=== PATIENT | female | born 1955 | race Caucasian/White ===

== ENCOUNTER 2017-12-12 06:01 | Observation (INO) | payer MEDICARE, OTHER ==
[~2017-12-12] VITALS: Ht 154.9 cm; Wt 73.0 kg
[2017-12-12 06:04] VITALS: BP 185/79; PULSE 67; RESP 18; TEMP 97.4; O2SAT 100
[2017-12-12] MEDS ORDERED: SODIUM CHLOR 0.9% 1000 ML INJ 1,000 ML IV SCH (06:22)
[2017-12-12] MEDS ORDERED: MORPHINE SULFATE 4 MG/ML INJ IV PUSH ONE (06:30)
[2017-12-12] MEDS ORDERED: ONDANSETRON HCL 4 MG/2 ML VIAL IVP ONE (06:30)
[2017-12-12] MEDS ORDERED: SODIUM CHLORIDE 0.9% FLUSH 10 ML FLUSH IV FLUSH PRN ×2 (06:30→10:30)
--- NOTE | 2017-12-12 06:34 | PD ---
HPI . Abdominal pain Chief Complaint: Abdominal Pain Time Seen by Provider: 06:16 Travel History International Travel<30 days: No Contact w/Intl Traveler<30days: No Traveled to known affect area: No History of Present Illness HPI This patient presents with a chief complaint of abdominal pain. Onset was about 2 AM. She states that she ate a steak for supper last night and felt nauseous shortly after eating. The pain started at 0200 and has persisted since that time.. The pain is moderate. She states that she has a known history of gallstones. She has intermittent episodes of symptoms. She states that this 1 is the worst. She states that her primary care provider referred her to Dr. Medina for evaluation of her abdominal pain. She had an outpatient CT scan done which showed gallstones but no evidence of cholecystitis. That was in February 2017. ON LICENSE OF [facility] Past Medical History Medical History: Denies Significant Hx Diminished Hearing: No Immunizations Current: Yes Past Surgical History Section: Yes Social History Alcohol Use: No Tobacco Use: No Substance Use: No Allergies-Medications (Allergen,Severity, Reaction): Coded Allergies: No Known Allergies (Unverified , 12/12/17) Review of Systems Except as stated in HPI: all other systems reviewed are Neg General / Constitutional: No: Fever, Chills Gastrointestinal: Positive: Nausea, Vomiting, Abdominal Pain Genitourinary: No: Urgency, Frequency, Dysuria Physical Exam Narrative GENERAL: Awake and alert. She looks mildly uncomfortable. SKIN: warm/dry. HEAD: Normocephalic. Atraumatic. EYES: Pupils equal and round. No scleral icterus. No injection or drainage. ENT: No nasal bleeding or discharge. Mucous membranes pink and moist. NECK: Trachea midline. Full range of motion without pain.. CARDIOVASCULAR: Regular rate and rhythm. Heart sounds are normal. RESPIRATORY: No accessory muscle use. Clear to auscultation. Breath sounds equal bilaterally. GASTROINTESTINAL: Abdomen soft. Tenderness on the right. Positive Mosher sign. Bowel sounds present. Nondistended. MUSCULOSKELETAL: No obvious deformities. NEUROLOGICAL: Awake and alert. No obvious cranial nerve deficits. Motor grossly within normal limits. Normal speech. PSYCHIATRIC: Appropriate mood and affect; insight and judgment normal. Data Data Last Documented VS Vital Signs Date Time Temp Pulse Resp B/P (MAP) Pulse Ox O2 Delivery O2 Flow Rate FiO2 12/12/17 06:04 97.4 67 18 185/79 (114) 100 Orders Orders Complete Blood Count With Diff (12/12/17 06:22) Comprehensive Metabolic Panel (12/12/17 06:22) Lipase (12/12/17 06:22) Urinalysis - C+S If Indicated (12/12/17 06:22) Iv Access Insert/Monitor (12/12/17 06:22) Morphine Inj (Morphine Inj) (12/12/17 06:30) Ondansetron Inj (Zofran Inj) (12/12/17 06:30) Sodium Chlor 0.9% 1000 Ml Inj (Ns 1000 M (12/12/17 06:22) Sodium Chloride 0.9% Flush (Ns Flush) (12/12/17 06:30) Labs Laboratory Tests Test 12/12/17 06:58 12/12/17 07:00 [facility] Medical Decision Making Medical Screen Exam Complete: Yes Emergency Medical Condition: Yes Medical Record Reviewed: Yes (She does not have any old records in our system. However, she does have a copy of her CT report from February.) Differential Diagnosis Differential diagnosis of abdominal pain includes but is not limited to gastritis, pancreatitis, hepatitis, gastroenteritis, constipation, urinary retention, peptic ulcer disease, diverticulitis or appendicitis Narrative Course This patient presents stating that she has a known history of gallstones. She had a steak for supper last night and awakened at 2:00 this morning with right upper quadrant abdominal pain. She has had some associated nausea and vomiting. An IV has been started and she has been given IV morphine and Zofran. Labs and UA have been ordered. Her care will be turned over to the oncoming provider at 7 AM pending lab results and response to treatment. If she needs a surgeon, she has seen Dr. Forrest Medina as an outpatient. Diagnosis Primary Impression: Abdominal pain Qualified Codes: R10.11 - Right upper quadrant pain Condition: Stable Emi Ogden MD Dec 12, 2017 06:34
[2017-12-12 07:20] LABS: AUTOMATED NEUTROPHIL # 4.2 TH/MM3 (1.8-7.7); BASOPHIL % 0.2 % (0.0-2.0); EOSINOPHIL % 0.2 % (0.0-4.0); HEMATOCRIT 36.2 % (35.0-46.0); HEMOGLOBIN 12.5 GM/DL (11.6-15.3); LYMPHOCYTE # 0.9 TH/MM3 (1.0-4.8); MEAN CELL VOLUME 86.6 FL (80.0-100.0); MEAN CORPUSCULAR HEMOGLOBIN 29.8 PG (27.0-34.0); MEAN CORPUSCULAR HGB CONC 34.4 % (32.0-36.0); MEAN PLATELET VOLUME 8.9 FL (7.0-11.0); MONO % 4.5 % (0.0-8.0); MONOCYTE # 0.2 TH/MM3 (0-0.9); NEUT % 78.1 % (16.0-70.0); PLATELET COUNT 152 TH/MM3 (150-450); RED BLOOD COUNT 4.18 MIL/MM3 (4.00-5.30); RED CELL DISTRIBUTION WIDTH 14.2 % (11.6-17.2); WHITE BLOOD COUNT 5.3 TH/MM3 (4.0-11.0)
[2017-12-12 07:44] LABS: AMORPHOUS SEDIMENT, URINE MOD; BILIRUBIN, URINE NEG (NEG); BLOOD, URINE NEG (NEG); GLUCOSE,URINE NEG (NEG); KETONE, URINE 40 mg/dL (NEG); MUCUS URINE MOD /lpf (OCC); NITRITE,URINE NEG (NEG); PH, URINE 7.5 (5.0-8.5); SQUAMOUS EPITHELIAL CELL URINE 2 /hpf (0-5); URINE COLOR YELLOW (YELLW/STRAW); URINE LEUKOCYTE ESTERASE MOD (NEG)
[2017-12-12 07:57] LABS: ALBUMIN 3.8 GM/DL (3.4-5.0); ALT (GPT) 19 U/L (10-53); AST (GOT) 13 U/L (15-37); BICARBONATE 26.5 MEQ/L (21.0-32.0); BLOOD UREA NITROGEN 15 MG/DL (7-18); CALCIUM 8.6 MG/DL (8.5-10.1); CHLORIDE 107 MEQ/L (98-107); CREATININE 0.41 MG/DL (0.50-1.00); GLOMERULAR FILTRATION RATE 157 ML/MIN (>89); GLUCOSE,RANDOM 150 MG/DL (74-106); SODIUM (NA) 141 MEQ/L (136-145)
[2017-12-12 07:59] LABS: ALKALINE PHOSPHATASE 73 U/L (45-117); TOTAL BILIRUBIN ADULT 0.4 MG/DL (0.2-1.0); TOTAL PROTEIN 7.7 GM/DL (6.4-8.2)
[2017-12-12] MEDS ORDERED: MORPHINE SULFATE 2 MG/ML SYRINGE IV PUSH ONE (08:45)
[2017-12-12] MEDS ORDERED: IOHEXOL 350 MG/ML 10 ML VIAL (for RAD DIAG) IVCONTRAST ONE (09:10)
--- NOTE | 2017-12-12 09:34 | RADRPT ---
EXAM DATE/TIME: 12/12/2017 09:05 [facility] COMPARISON: No previous studies available for comparison. INDICATIONS : Abdominal pain. IV CONTRAST: 95 cc Omnipaque 350 (iohexol) IV ORAL CONTRAST: No oral contrast ingested. RADIATION DOSE: 12.41 CTDIvol (mGy) MEDICAL HISTORY : Gall stones. SURGICAL HISTORY : section. ENCOUNTER: Initial ACUITY: 1 day PAIN SCALE: 6/10 LOCATION: Abdomen. TECHNIQUE: Volumetric scanning of the abdomen and pelvis was performed. Using automated exposure control and ad justment of the mA and/or kV according to patient size, radiation dose was kept as low as reasonably achievable to obtain optimal diagnostic quality images. DICOM format image data is available electro nically for review and comparison. FINDINGS: LOWER LUNGS: The visualized lower lungs are clear. LIVER: Homogeneous density without lesion. There is mild dilation of the biliary tree. Multiple calcified g allstones. Gallbladder dilated. SPLEEN: Normal size without lesion. PANCREAS: Within normal limits. KIDNEYS: Normal in size and shape. There is no mass, stone or hydronephrosis. ADRENAL GLANDS: Within normal limits. VASCULAR: There is no aortic aneurysm. BOWEL/MESENTERY: The stomach, small bowel, and colon demonstrate no acute abnormality. There is no free intraperitone al air or fluid. Scattered diverticula. ABDOMINAL WALL: Within normal limits. RETROPERITONEUM: There is no lymphadenopathy. BLADDER: No wall thickening or mass. REPRODUCTIVE: Within normal limits. INGUINAL: There is no lymphadenopathy or hernia. MUSCULOSKELETAL: Within normal limits for patient age. CONCLUSION: 1. Gallbladder is dilated with multiple gallstones and mild intrahepatic biliary ductal dilatation. 2. Scattered diverticulosis without diverticulitis. Aries Dorantes MD on December 12, 2017 at 9:30 Board Certified Radiologist. This report was verified electronically.
[2017-12-12] MEDS ORDERED: ONDANSETRON HCL 4 MG/2 ML VIAL IV PUSH PRN ×2 (10:30→20:30)
[2017-12-12] MEDS ORDERED: MORPHINE SULFATE 4 MG/ML INJ IV PUSH PRN (10:30)
[2017-12-12] MEDS ORDERED: MORPHINE SULFATE 2 MG/ML SYRINGE IV PUSH PRN (10:30)
[2017-12-12] MEDS ORDERED: ceFAZolin 2 GM PREMIX 50 ML IV ONE (11:00)
[2017-12-12] MEDS: SODIUM CHLOR 0.9% 1000 ML INJ 1,000 ML IV SCH ×2 (11:25→19:46)
[2017-12-12 12:00] VITALS: BP 178/77; PULSE 111; RESP 17; TEMP 97.4; O2SAT 96
[2017-12-12] MEDS ORDERED: KETOROLAC TROMETHAMINE 30 MG/ML (IVP) VIAL IV PUSH ONE (12:00)
[2017-12-12] MEDS ORDERED: ROCURONIUM INJ 50 MG/5 ML SYRINGE IV PUSH ONE (12:00)
[2017-12-12] MEDS ORDERED: hydrALAZINE HCL 20 MG/ML VIAL IV ONE (12:00)
[2017-12-12] MEDS ORDERED: NEOSTIGMINE 5 MG/5 ML SYRINGE IV PUSH ONE (12:00)
[2017-12-12] MEDS ORDERED: DEXAMETHASONE SOD PHOS 4 MG/ML VIAL IV ONE (12:00)
[2017-12-12] MEDS ORDERED: LIDOCAINE HCL 1% PF 5 ML SYRINGE OTHER ONE (12:00)
[2017-12-12] MEDS ORDERED: ONDANSETRON HCL 4 MG/2 ML VIAL IV ONE (12:00)
[2017-12-12] MEDS ORDERED: PROPOFOL 200 MG/20 ML AMP IV ONE (12:00)
[2017-12-12] MEDS ORDERED: LACTATED RINGER'S 1000 ML INJ 1,000 ML IV ONE (12:00)
[2017-12-12] MEDS ORDERED: SODIUM CHLORIDE 0.9% 10 ML VIAL IV FLUSH ONE (12:00)
[2017-12-12] MEDS ORDERED: GLYCOPYRROLATE 1 MG/5 ML SYRINGE IV PUSH ONE (12:00)
[2017-12-12] MEDS ORDERED: SUCCINYLCHOLINE CHLORIDE 200 MG/10 ML VIAL IV ONE (12:00)
--- NOTE | 2017-12-12 14:24 | HHI.HP ---
cc: David Leiva MD HPI Service General Surgery Primary Care Physician No Primary Care Physician Admission Diagnosis Biliary colic Chief Complaint: Abdominal pain with associated nausea. History of Present Illness This is a 62 year old female with no significant past medical history who presents to the ED with complains of abdominal pain with associated nausea that began about 0200 this morning. She had Indonesian food for dinner last night. She suddenly awoke with severe abdominal pain. She had seen Dr. Leiva about 9 months ago for similar pain and she was found to have gallstones. She decided on conservative management and dietary changes at that time. A CT abdomen/ pelvis was obtained in the ED and shows the gallbladder is dilated with multiple gallstones. Her WBC is normal. Her liver enzymes are normal. Her lipase is normal. A General Surgery admission has been requested. Review of Systems Constitutional: DENIES: Fatigue, Chills, Change in appetite Endocrine: DENIES: Polydipsia, Polyuria, Polyphagia Eyes: DENIES: Diplopia Ears, nose, mouth, throat: DENIES: Hearing loss Respiratory: DENIES: Apneas, Cough Cardiovascular: DENIES: Chest pain Gastrointestinal: COMPLAINS OF: Abdominal pain, Nausea, DENIES: Vomiting Genitourinary: DENIES: Urinary frequency Musculoskeletal: DENIES: Joint pain Integumentary: DENIES: Abnormal pigmentation Hematologic/lymphatic: DENIES: Bruising Immunologic/allergic: DENIES: Eczema Neurologic: DENIES: Headache, Localized weakness Psychiatric: DENIES: Mood changes, Depression, Hallucinations Past Family Social History Past Medical History None Past Surgical History Lipoma removal Reported Medications None Allergies: Coded Allergies: No Known Allergies (Unverified , 12/12/17) Active Ordered Medications Current Medications Medications (Trade) Dose Ordered Sig/Tonya Route Start Time Stop Time Status Last Admin Sodium Chloride 1,000 ml @ 125 mls/hr Q8H IV 12/12/17 11:00 12/12/17 11:25 (NS Flush) 2 ml BID IV FLUSH 12/12/17 21:00 (NS Flush) 2 ml UNSCH PRN IV FLUSH 4/17/18 10:30 (Morphine Inj) 2 mg Q3H PRN IV PUSH 12/12/17 10:30 (Morphine Inj) 4 mg Q3H PRN IV PUSH 12/12/17 10:30 (Zofran Inj) 4 mg Q6H PRN IV PUSH 12/12/17 10:30 Family History Noncontributory Social History Denies tobacco use Occasional ETOH use; not daily Denies illicit drug use She lives in [place], [place] with her . Physical Exam Vital Signs Vital Signs Date Time Temp Pulse Resp B/P (MAP) Pulse Ox O2 Delivery O2 Flow Rate FiO2 12/12/17 12:00 97.4 111 17 178/77 (110) 96 12/12/17 06:04 97.4 67 18 185/79 (114) 100 Physical Exam GENERAL: Pleasant 62 year old female resting in bed in mild acute distress secondary to pain. SKIN: Warm and dry. HEAD: Atraumatic. Normocephalic. EYES: Pupils equal and round. No scleral icterus. No injection or drainage. ENT: No nasal bleeding or discharge. Mucous membranes pink and moist. NECK: Trachea midline. CARDIOVASCULAR: Regular rate and rhythm. RESPIRATORY: No accessory muscle use. Clear to auscultation. Breath sounds equal bilaterally. GASTROINTESTINAL: Abdomen soft, non distended. Epigastric and RUQ tenderness with palpation. Well healed low transverse scar. MUSCULOSKELETAL: Extremities without clubbing, cyanosis, or edema. No obvious deformities. NEUROLOGICAL: Awake and alert. No obvious cranial nerve deficits. Motor grossly within normal limits. Five out of 5 muscle strength in the arms and legs. Normal speech. PSYCHIATRIC: Appropriate mood and affect; insight and judgment normal. Laboratory Laboratory Tests Test 12/12/17 06:58 12/12/17 07:00 White Blood Count 5.3 Red Blood Count 4.18 Hemoglobin 12.5 Hematocrit 36.2 Mean Corpuscular Volume 86.6 Mean Corpuscular Hemoglobin 29.8 Mean Corpuscular Hemoglobin Concent 34.4 Red Cell Distribution Width 14.2 Platelet Count 152 Mean Platelet Volume 8.9 Neutrophils (%) (Auto) 78.1 Lymphocytes (%) (Auto) 17.0 Monocytes (%) (Auto) 4.5 Eosinophils (%) (Auto) 0.2 Basophils (%) (Auto) 0.2 Neutrophils # (Auto) 4.2 Lymphocytes # (Auto) 0.9 Monocytes # (Auto) 0.2 Eosinophils # (Auto) 0.0 Basophils # (Auto) 0.0 CBC Comment AUTO DIFF Differential Comment AUTO DIFF CONFIRMED Blood Urea Nitrogen 15 Creatinine 0.41 Random Glucose 150 Total Protein 7.7 Albumin 3.8 Calcium Level 8.6 Alkaline Phosphatase 73 Aspartate Amino Transf (AST/SGOT) 13 Alanine Aminotransferase (ALT/SGPT) 19 Total Bilirubin 0.4 Sodium Level 141 Potassium Level 3.6 Chloride Level 107 Carbon Dioxide Level 26.5 Anion Gap 8 Estimat Glomerular Filtration Rate 157 Lipase 98 Urine Color YELLOW Urine Turbidity HAZY Urine pH 7.5 Urine Specific Grover 1.021 Urine Protein TRACE Urine Glucose (UA) NEG Urine Ketones 40 Urine Occult Blood NEG Urine Nitrite NEG Urine Bilirubin NEG Urine Urobilinogen LESS THAN 2.0 Urine Leukocyte Esterase MOD Urine RBC 2 Urine WBC 7 Urine Squamous Epithelial Cells 2 Urine Amorphous Sediment MOD Urine Mucus MOD Microscopic Urinalysis Comment CULT NOT INDICATED Result Diagram: 12/12/17 0658 12/12/17 0658 Imaging Last 48 hours Impressions Abdomen/Pelvis CT 12/12/17 0831 Signed Impressions: Service Date/Time: Tuesday, December 12, 2017 09:05 - CONCLUSION: 1. Gallbladder is dilated with multiple gallstones and mild intrahepatic biliary ductal dilatation. 2. Scattered diverticulosis without diverticulitis. Aries Dorantes MD Caprini VTE Risk Assessment Caprini VTE Risk Assessment: No/Low Risk (score <= 1) VTE Pharm Contraindication: going to surgery Caprini Risk Assessment Model Point Value = 1 Point Value = 2 Point Value = 3 Point Value = 5 Age 41-60 Minor surgery BMI > 25 kg/m2 Swollen legs Varicose veins or History of unexplained or recurrent spontaneous Oral contraceptives or hormone replacement Sepsis (< 1 month) Serious lung disease, including pneumonia (< 1 month) Abnormal pulmonary function Acute myocardial infarction Congestive heart failure (< 1 month) History of inflammatory bowel disease Medical patient at bed rest Age 61-74 Arthroscopic surgery Major open surgery (> 45 min) Laparoscopic surgery (> 45 min) Malignancy Confined to bed (> 72 hours) Immobilizing plaster cast Central venous access Age >= 75 History of VTE Family history of VTE Factor V Leiden Prothrombin [id number] Lupus anticoagulant Anticardiolipin antibodies Elevated serum homocysteine Heparin-induced thrombocytopenia Other congenital or acquired thrombophilia Stroke (< 1 month) Elective arthroplasty Hip, pelvis, or leg fracture Acute spinal cord injury (< 1 month) Prophylaxis Regimen Total Risk Factor Score Risk Level Prophylaxis Regimen 0-1 Low Early ambulation 2 Moderate Order ONE of the following: *Sequential Compression Device (SCD) *Heparin 5000 units SQ BID 3-4 Higher Order ONE of the following medications: *Heparin 5000 units SQ TID *Enoxaparin/Lovenox 40 mg SQ daily (WT < 150 kg, CrCl > 30 mL/min) *Enoxaparin/Lovenox 30 mg SQ daily (WT < 150 kg, CrCl > 10-29 mL/min) *Enoxaparin/Lovenox 30 mg SQ BID (WT < 150 kg, CrCl > 30 mL/min) AND/OR *Sequential Compression Device (SCD) 5 or more Highest Order ONE of the following medications: *Heparin 5000 units SQ TID (Preferred with Epidurals) *Enoxaparin/Lovenox 40 mg SQ daily (WT < 150 kg, CrCl > 30 mL/min) *Enoxaparin/Lovenox 30 mg SQ daily (WT < 150 kg, CrCl > 10-29 mL/min) *Enoxaparin/Lovenox 30 mg SQ BID (WT < 150 kg, CrCl > 30 mL/min) AND *Sequential Compression Device (SCD) Assessment and Plan Assessment and Plan 62 year old female with RUQ pain; gallstones; thickened gallbladder wall -Plan for laparoscopic cholecystectomy this afternoon with Dr. Leiva -NPO -Obtain consents -Explained procedure in detail and all questions answered -Hold anticoagulation PT SEEN AND EVALUATED WITH PBX MECHANIC WHO DOCUMENTED OUR VISIT. ACUTE CHOLECYSTITIS. RECOMMEND LAP RENE. PT AGREES. OR NOTIFIED. DAVID LEIVA MD FACS Discussed Condition With Dr. Adam Vaughn. and JacquelineArlene Oliver PBX MECHANIC/Court Recorder PBX MECHANIC Dec 12, 2017 14:24 David Leiva MD Dec 15, 2017 15:43
[2017-12-12 16:12] VITALS: BP 147/74; PULSE 73; RESP 17; TEMP 98.6; O2SAT 96
[2017-12-12] MEDS ORDERED: ACETAMINOPHEN 1000 MG/100 ML 100 ML IV ONE (16:40)
[2017-12-12] MEDS ORDERED: CHLORHEXIDINE GLUCONATE 2 % 1 PACK (2 CLOTHS) TOPICAL PRN (17:00)
[2017-12-12] MEDS ORDERED: LACTATED RINGER'S 1000 ML IV PRN (17:00)
[2017-12-12] MEDS ORDERED: METOPROLOL TARTRATE 25 MG TAB PO PRN (17:00)
[2017-12-12] MEDS ORDERED: SODIUM CHLORID 0.9% 500 ML IV PRN (17:00)
[2017-12-12] MEDS ORDERED: POVIDONE IODINE 5% (ANTISEPSIS KIT) 4 APPLICATIONS EACH NARE PRN (17:00)
[2017-12-12] MEDS ORDERED: BUPIVACAINE/EPINEPHRINE 0.75% PF 30 ML VIAL ONE (17:54)
[2017-12-12] MEDS ORDERED: DO NOT ADM ANY ANTICOAGULANT DRUGS PRN (18:55)
[2017-12-12] MEDS ORDERED: MIDAZOLAM HCL 2 MG/2 ML VIAL ONE (19:04)
[2017-12-12] MEDS ORDERED: DEXTROSE 5%-LACTATED RING INJ 1,000 ML ONE (19:30)
--- NOTE | 2017-12-12 19:33 | MP ---
cc: Forrest Medina MD DATE OF OPERATION: 12/12/2017 PREOPERATIVE DIAGNOSIS: Acute cholecystitis. POSTOPERATIVE DIAGNOSIS: Gangrenous cholecystitis. PROCEDURE PERFORMED: Laparoscopic cholecystectomy. SURGEON: Forrest Medina MD HYDRAULIC BLOCKER: Ana Mcguire MS-3 ANESTHESIA: General endotracheal. COMPLICATIONS: None. INDICATIONS FOR PROCEDURE: Ms. Phillips is a pleasant 62-year-old female who I had seen approximately a year ago for chronic cholecystitis. She was offered elective cholecystectomy at that time. The patient declined and wanted to manage her gallstones with diet modification. Apparently, over the weekend, the patient was visiting some relatives up [place] and ate a lot of greasy, fatty food including a steak and multiple desserts. She developed severe right upper quadrant abdominal pain. She came to the emergency department early this morning where she was seen and evaluated by the ER doctor. There, she was found to have significant pain. She was also found to have a low-grade fever. Her white count was normal. LFTs were normal. She had a CT scan of the abdomen and pelvis, which demonstrated a distended, edematous gallbladder and multiple small gallstones. It was felt acute cholecystitis was the most likely diagnosis. Surgical consultation was requested. The patient was seen and evaluated. Risks and benefits of immediate laparoscopic, possible open cholecystectomy was discussed with her and her . She was agreeable. INTRAOPERATIVE FINDINGS: The patient was noted to have a distended, edematous gallbladder that was very thin walled and completely filled with multiple small stones. There were multiple areas of dark green ischemic changes noted. The gallbladder was completely encased in omentum and this had to be dissected off using blunt, hydrodissection and electrocautery dissection. Case took an excessive amount of time due to the acute inflammatory nature of the gallbladder. DETAILS OF PROCEDURE: The patient was identified, brought to the operating room, placed supine on the operating table. After adequate general endotracheal anesthesia was achieved, the abdomen was prepped and draped in standard surgical fashion. Supraumbilical space anesthetized with 0.25% Marcaine. Supraumbilical incision was made. Dissection was carried down through subcutaneous tissue to midline fascia. Midline fascia was then incised sharply. A finger was then placed in the peritoneal cavity without difficulty. Blunt balloon trocar was inserted, and the abdomen was insufflated to 15 mmHg using CO2 gas. Next, two 5 mm trocars were placed in the right upper quadrant after anesthetizing the skin and subcutaneous tissue with 0.25% Marcaine. Attention was directed to the right upper quadrant where the omentum was seen to be completely encasing the liver. The omentum was densely adherent to the gallbladder and acutely inflamed and edematous. Using careful dissection, the gallbladder was identified within the omentum. The omentum was carefully dissected off with a combination of blunt, hydrodissection and electrocautery dissection. Once we were able to clearly visualize the gallbladder, it was retracted cephalad. There were multiple areas of dark green ischemic changes noted on the gallbladder, and these were photographed. Gallbladder was distended and completely filled with multiple small stones. Gallbladder was retracted cephalad. When we retracted the gallbladder, a small hole was made due to the thin nature of the gallbladder wall and the fact that it was acutely inflamed. Several small stones were spilled and these were immediately suctioned out with the suction sewer contractor. The hole was then closed with a 2-0 PDS Endoloop. Again, the gallbladder was retracted cephalad and the gallbladder neck was dissected. Using combination of blunt and hydrodissection, the cystic artery and cystic duct were clearly identified in 2 planes seen entering the neck of the gallbladder. They were clipped twice proximally, once distally and then divided. When the cystic duct was transected, there was noted to be multiple small stones within the cystic duct segment. These were suctioned out with the suction sewer contractor. Cystic artery was taken down with no problem and attention was now directed to the gallbladder fossa. Gallbladder basically auto dissected out of the hepatic fossa due to the fact it was acutely inflamed and had ischemic changes. The liver bed had more of a continuous ooze of bleeding during this dissection due to the acute inflammatory nature. Once the gallbladder was freed up completely, it was placed into the EndoCatch bag. Gallbladder was brought out through the infraumbilical port and inspected. Gallbladder was completely filled with small black stones. The cystic duct stump was inspected, clip was intact and there was no evidence of leakage of bile. Attention was now directed in the abdominal cavity. All small stones were suctioned out the suction sewer contractor by switching to a 10 mm sewer contractor. Once all the stones were cleaned out, the liver bed was carefully inspected. Several bleeding points were identified and controlled with electrocautery Bovie. Clips were inspected on the cystic duct stump and the 2 clips initially placed, the second clip looked a little loose. I went ahead and removed this clip and placed 2 additional clips on the distal cystic duct segment. No bile was seen coming out of the cystic duct segment prior to removal of the clips and replacement with the new clips. As stated, there were some small stones that were milked out of the cystic duct and then we reclipped it with 2 additional clips. The cystic artery clips were intact, and there was no evidence of bleeding. At this point, the abdominal cavity was rinsed out with warm saline solution. Liver bleeding had pretty much ceased and just had a gentle ooze in several small spots. We used some Surgicel powder and once we applied this, there was no bleeding noted whatsoever. The powder was completely white and there was no bleeding through the powder at all. All irrigant was then removed from the abdominal cavity. The hepatic fossa was then packed with the omentum that had been up there previously. All ports were removed under direct vision. Midline fascia was repaired with a 0 Vicryl in a [id number] fashion. Skin was closed with a 4-0 Vicryl. Please note this cholecystectomy took additional time, and we had to open additional instruments and place an additional third port in the right upper quadrant in order to adequately visualize and safely remove the gallbladder due to its large size, its dense inflammatory nature and the fact that it was hypervascular and all dissection points bled quite easily. Forrest MD DEBRA Elizabeth/JELLY , 06:53 PM , 07:32 PM
[2017-12-12 20:00] VITALS: BP 149/70; PULSE 79; RESP 16; TEMP 97.9; O2SAT 95
[2017-12-12] MEDS ORDERED: LEVOFLOXACIN 500 MG TAB PO SCH (20:00)
[2017-12-12] MEDS ORDERED: MORPHINE SULFATE 4 MG/ML INJ IV PRN (20:30)
[2017-12-12] MEDS ORDERED: ACETAMINOPHEN/HYDROcodone 325 MG/5 MG TAB PO PRN (20:30)
[2017-12-12] MEDS: SODIUM CHLORIDE 0.9% FLUSH 10 ML FLUSH IV FLUSH SCH (20:41)
[2017-12-12] MEDS ORDERED: DEXTROSE 5%-LACTATED RING INJ 1,000 ML IV SCH (21:00)
[2017-12-13] VITALS: BP 129/71; PULSE 93; RESP 16; TEMP 97.8; O2SAT 93
[2017-12-13 04:00] VITALS: BP 139/65; PULSE 75; RESP 18; TEMP 98; O2SAT 91
[2017-12-13 07:13] LABS: AUTOMATED NEUTROPHIL # 6.9 TH/MM3 (1.8-7.7); BASOPHIL % 0.1 % (0.0-2.0); HEMATOCRIT 30.4 % (35.0-46.0); HEMOGLOBIN 10.9 GM/DL (11.6-15.3); LYMPH % 11.9 % (9.0-44.0); MEAN CELL VOLUME 85.6 FL (80.0-100.0); MEAN CORPUSCULAR HEMOGLOBIN 30.6 PG (27.0-34.0); MEAN CORPUSCULAR HGB CONC 35.7 % (32.0-36.0); MEAN PLATELET VOLUME 9.1 FL (7.0-11.0); MONO % 8.6 % (0.0-8.0); MONOCYTE # 0.7 TH/MM3 (0-0.9); NEUT % 79.4 % (16.0-70.0); PLATELET COUNT 158 TH/MM3 (150-450); RED BLOOD COUNT 3.55 MIL/MM3 (4.00-5.30); RED CELL DISTRIBUTION WIDTH 14.5 % (11.6-17.2); WHITE BLOOD COUNT 8.6 TH/MM3 (4.0-11.0)
[2017-12-13 08:00] VITALS: BP 108/57; PULSE 59; RESP 16; TEMP 97.6; O2SAT 96
[2017-12-13] MEDS: SODIUM CHLORIDE 0.9% FLUSH 10 ML FLUSH IV FLUSH SCH (08:56)
[2017-12-13] MEDS ORDERED: LEVA500T33 PO (09:47)
[2017-12-13] MEDS ORDERED: HYDR-3516 PO (09:47)
--- NOTE | 2017-12-13 09:49 | HHI.DS ---
Discharge Summary Admission Date Dec 12, 2017 at 09:47 Discharge Date: Dec 13, 2017 Admitting Diagnosis Biliary colic Brief History This is a 62 year old female with no significant past medical history who presents to the ED with complains of abdominal pain with associated nausea that began about 0200 this morning. She had Slovak food for dinner last night. She suddenly awoke with severe abdominal pain. She had seen Dr. Medina about 9 months ago for similar pain and she was found to have gallstones. She decided on conservative management and dietary changes at that time. A CT abdomen/ pelvis was obtained and shows the gallbladder is dilated with multiple gallstones. Her WBC is normal. Her liver enzymes are normal. Her lipase is normal. A General Surgery admission has been requested. CBC/BMP: 12/13/17 0617 12/12/17 0658 Significant Findings Laboratory Tests Test 12/12/17 06:58 12/12/17 07:00 12/13/17 06:17 Neutrophils (%) (Auto) 78.1 % (16.0-70.0) 79.4 % (16.0-70.0) Lymphocytes # (Auto) 0.9 TH/MM3 (1.0-4.8) Creatinine 0.41 MG/DL (0.50-1.00) Random Glucose 150 MG/DL (74-106) Aspartate Amino Transf (AST/SGOT) 13 U/L (15-37) Urine Turbidity HAZY (CLEAR) Urine Ketones 40 mg/dL (NEG) Urine Leukocyte Esterase MOD (NEG) Urine WBC 7 /hpf (0-5) Urine Mucus MOD /lpf (OCC) Red Blood Count 3.55 MIL/MM3 (4.00-5.30) Hemoglobin 10.9 GM/DL (11.6-15.3) Hematocrit 30.4 % (35.0-46.0) Monocytes (%) (Auto) 8.6 % (0.0-8.0) PE at Discharge Alert and awake Cardio: RRR Resp: CTAB Abd: lap sites c/d/i; minimal tenderness around umbilicus Hospital Course This is a 62 year old female POD1 laparoscopic cholecystectomy. The patient was able to tolerate a regular diet. Her pain was controlled using oral pain medications. She will follow up next Monday in the office at 2:30PM. She was provided with a prescription for antibiotics and pain medication. Pt Condition on Discharge: Arlene Castaneda/[facility] [place] CARABALLOP Dec 13, 2017 09:49
== END 2017-12-13 11:29 | disposition home or self-care (01) ==
LOC: NEPE 06:01 → INTOOBSV 09:47 → NEDA 09:47 → NEDH 10:32 → N07B 19:57
PROVIDERS: ADMIT Surgery Trauma Surgery; ATTEND Surgery Trauma Surgery
DX: K80.12 Calculus of gallbladder with acute and chronic cholecystitis without obstruction (principal); K57.90 Diverticulosis of intestine, part unspecified, without perforation or abscess without bleeding
CPT/HCPCS: 00790; 47562; 74177; 80053; 81001; 83690; 85025; 88304; 96361; 96365; 96375; 96376; 99285; G0378; J0131; J0330; J0360; J0690; J1100; J1885; J2250; J2270; J2405; J2710; J3010; J7030; J7120; J7121; Q9967